=== PATIENT | male | born 1985 | race Caucasian/White ===

== ENCOUNTER 2020-12-29 13:52 | Emergency (ER) | payer SELFPAY ==
[~2020-12-29] VITALS: Ht 170.2 cm; Wt 86.5 kg
[2020-12-29 13:52] VITALS: BP 132/72
== END 2020-12-29 18:18 | disposition left against medical advice (07) ==
LOC: M ED 13:52
DX: Z53.21 Procedure and treatment not carried out due to patient leaving prior to being seen by health care provider (principal)

== ENCOUNTER 2021-01-15 13:56 | Emergency (ER) | payer OTHER, SELFPAY ==
[~2021-01-15] VITALS: Ht 170.2 cm; Wt 84.4 kg
[2021-01-15 14:55] LABS: BASO # 0.1 10^3/uL (0.0-0.2); BASO % 0.7 % (0.0-1.0); EOS # 0.2 10^3/uL (0.0-0.5); EOS % 2.5 % (0.0-3.0); HEMATOCRIT 41.8 % (42.0-52.0); HEMOGLOBIN 14.2 g/dl (13.5-17.5); LYMPH # 3.4 10^3/uL (1.5-5.0); MEAN CORPUSCULAR VOLUME 91.3 fl (80.0-96.0); MONO # 0.6 10^3/uL (0.0-0.8); MONO % 6.4 % (2.0-8.0); NEUTROPHILS # 4.7 10^3/uL (1.5-8.5); NEUTROPHILS % 52.2 % (36.0-66.0); PLATELET COUNT, AUTOMATED 268 10^3/uL (150-450); RED BLOOD COUNT 4.58 10^6/uL (4.30-6.10); WHITE BLOOD COUNT 8.9 10^3/uL (4.0-10.0)
--- NOTE | 2021-01-15 15:09 | REP ---
INDICATION: CHEST PAIN. COMPARISON: No comparison chest x-ray. TECHNIQUE: Portable upright AP chest radiograph. FINDINGS: The lungs are well inflated and free of infiltrate. Pleural angles are sharp. Heart size is normal. Pulmonary vasculature is not increased. IMPRESSION: No active disease. <Electronically signed by Roberto Ramirez > 01/15/21 [id number]
[2021-01-15 16:17] LABS: ALBUMIN 3.8 GM/DL (3.2-5.2); ALT/SGPT 37 U/L (12-78); BILIRUBIN,DIRECT < 0.1 MG/DL (0.0-0.2); BILIRUBIN,TOTAL 0.3 MG/DL (0.2-1.0); BLOOD UREA NITROGEN 26 MG/DL (7-18); CALCIUM LEVEL 9.2 MG/DL (8.5-10.1); CARBON DIOXIDE LEVEL 29 MEQ/L (21-32); CHLORIDE LEVEL 107 MEQ/L (98-107); CK-MB VALUE MASS < 1.0 NG/ML (<3.6); CPK CREATINE PHOSPHOKINASE 203 U/L (39-308); CREATININE FOR GFR 1.12 MG/DL (0.70-1.30); GLOMERULAR FILTRATION RATE > 60.0 (>60); GLUCOSE, FASTING 78 MG/DL (70-100); LIPASE 126 U/L (73-393); MAGNESIUM LEVEL 2.2 MG/DL (1.8-2.4); MB/CK RELATIVE INDEX 0.49 (< OR =4); POTASSIUM SERUM 4.4 MEQ/L (3.5-5.1); SODIUM LEVEL 140 MEQ/L (136-145); TOTAL PROTEIN 7.3 GM/DL (6.4-8.2); TROPONIN I < 0.02 NG/ML (< 0.10)
[2021-01-15 16:30] VITALS: BP 145/69
--- NOTE | 2021-01-15 19:06 | ECGEPIP ---
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
== END 2021-01-15 16:37 | disposition home or self-care (01) ==
LOC: M ED 13:56
DX: R00.2 Palpitations (principal)

== ENCOUNTER 2022-01-23 15:39 | Emergency (ER) | payer OTHER ==
[~2022-01-23] VITALS: Ht 172.7 cm; Wt 81.8 kg
[2022-01-23] MEDS ORDERED: TRAM50TA2 PO (15:47)
[2022-01-23] MEDS ORDERED: FIOR1CAP PO (15:47)
[2022-01-23] MEDS ORDERED: GABA-283 PO (15:47)
[2022-01-23] MEDS ORDERED: FIORICET TAB PO ONE (18:05)
[2022-01-23] MEDS ORDERED: NS 1,000 ML IV ONE (18:10)
[2022-01-23] MEDS ORDERED: VALPROIC ACID 250MG CAP PO ONE (18:10)
[2022-01-23] MEDS ORDERED: DIVALPROEX 500 MG TAB PO ONE (18:10)
[2022-01-23] MEDS ORDERED: BUTACAP78 PO (18:24)
[2022-01-23] MEDS ORDERED: DEPA1TAB3 PO (18:26)
[2022-01-23 20:05] VITALS: BP 134/80
[2022-01-24] MEDS ORDERED: DEPA1TAB3 PO (09:08)
[2022-01-24] MEDS ORDERED: BUTACAP78 PO (09:08)
== END 2022-01-23 20:15 | disposition home or self-care (01) ==
LOC: M ED 15:39
DX: G43.909 Migraine, unspecified, not intractable, without status migrainosus (principal); Z79.899 Other long term (current) drug therapy

== ENCOUNTER 2022-01-31 09:18 | Emergency (ER) | payer OTHER ==
[~2022-01-31] VITALS: Ht 172.7 cm; Wt 83.2 kg
[~2022-01-31 09:18] MED LIST: BUTACAP78 PO; DEPA1TAB3 PO; FIOR1CAP PO; GABA-283 PO; TRAM50TA2 PO
[2022-01-31] MEDS ORDERED: GABA-282 (09:36)
[2022-01-31] MEDS ORDERED: RIZA10TA58 (09:36)
[2022-01-31] MEDS ORDERED: INDO-16 (09:36)
[2022-01-31] MEDS ORDERED: FIORICET TAB PO ONE (12:00)
[2022-01-31] MEDS ORDERED: PRED10TA2 PO (14:10)
[2022-01-31 14:25] VITALS: BP 110/72
[2022-01-31] MEDS ORDERED: DEPA250T32 PO (22:02)
== END 2022-01-31 14:26 | disposition home or self-care (01) ==
LOC: M ED 09:18
DX: Z76.0 Encounter for issue of repeat prescription (principal); G43.909 Migraine, unspecified, not intractable, without status migrainosus; Z79.899 Other long term (current) drug therapy

== ENCOUNTER 2022-02-05 09:58 | Emergency (ER) | payer OTHER ==
[~2022-02-05] VITALS: Ht 172.7 cm; Wt 81.8 kg
[~2022-02-05 09:58] MED LIST changes: +DEPA250T32 PO; +GABA-282; +INDO-16; +PRED10TA2 PO; +RIZA10TA58
[2022-02-05] MEDS ORDERED: NS 1,000 ML IV ONE (14:30)
[2022-02-05] MEDS ORDERED: METOCLOPRAMIDE INJ 10MG/2ML VIAL (J2765 PER 1) IV ONE (14:30)
[2022-02-05] MEDS ORDERED: KETOROLAC 30 MG/ML 1ML VIAL IV ONE (14:30)
[2022-02-05] MEDS ORDERED: diphenhydrAMINE 50MG/ML VIAL (J1200) IV STA (14:30)
[2022-02-05] MEDS ORDERED: REGL10TA6 PO (15:44)
[2022-02-05 15:56] VITALS: BP 130/63
== END 2022-02-05 15:58 | disposition home or self-care (01) ==
LOC: M ED 09:58
DX: G43.909 Migraine, unspecified, not intractable, without status migrainosus (principal); Z79.899 Other long term (current) drug therapy
CPT/HCPCS: 96361; 96374; 96375; 99284; J1200; J1885; J2765

== ENCOUNTER 2022-08-23 09:14 | Emergency (ER) | payer OTHER ==
[~2022-08-23] VITALS: Ht 172.7 cm; Wt 81.8 kg
[2022-08-23 09:14] VITALS: BP 159/76
[~2022-08-23 09:14] MED LIST changes: +REGL10TA6 PO
[2022-08-23] MEDS ORDERED: AIMO70IN2 (09:27)
[2022-08-23] MEDS ORDERED: AMIT25TA17 (09:27)
[2022-08-23] MEDS ORDERED: AMIT100TA (09:27)
[2022-08-23 11:39] LABS: RSV AMPLIFICATION NEGATIVE (NEGATIVE)
[2022-08-24] MEDS ORDERED: DOCU100C16 (09:52)
[2022-08-24] MEDS ORDERED: GABA-282 (09:52)
[2022-08-24] MEDS ORDERED: GLYC1TAB18 (09:52)
[2022-08-24] MEDS ORDERED: RIZA10TA58 (09:52)
[2022-08-24] MEDS ORDERED: POLY510P14 (09:52)
[2022-08-24] MEDS ORDERED: FLUTISP (09:52)
[2022-08-24] MEDS ORDERED: HYDR50TA70 (09:52)
[2022-08-24] MEDS ORDERED: CETI-24 (09:52)
[2022-08-24] MEDS ORDERED: OMEP40CA5 (09:52)
[2022-08-24] MEDS ORDERED: LIDO2SOL9 PO (10:31)
[2022-08-24] MEDS ORDERED: IBUP80TA PO (10:31)
== END 2022-08-23 12:37 | disposition left against medical advice (07) ==
LOC: M ED 09:14
DX: R05.9 Cough, unspecified (principal); Z53.21 Procedure and treatment not carried out due to patient leaving prior to being seen by health care provider

== ENCOUNTER 2022-08-24 09:43 | Emergency (ER) | payer OTHER ==
[~2022-08-24] VITALS: Ht 172.7 cm; Wt 82.9 kg
[~2022-08-24 09:43] MED LIST changes: +AIMO70IN2; +AMIT100TA; +AMIT25TA17
[2022-08-24] MEDS ORDERED: DOCU100C16 (09:52)
[2022-08-24] MEDS ORDERED: POLY510P14 (09:52)
[2022-08-24] MEDS ORDERED: FLUT50SP17 (09:52)
[2022-08-24] MEDS ORDERED: HYDR50TA70 (09:52)
[2022-08-24] MEDS ORDERED: RIZA10TA58 (09:52)
[2022-08-24] MEDS ORDERED: GLYC1TAB18 (09:52)
[2022-08-24] MEDS ORDERED: CETI-24 (09:52)
[2022-08-24] MEDS ORDERED: OMEP40CA5 (09:52)
[2022-08-24] MEDS ORDERED: GABA-282 (09:52)
[2022-08-24] MEDS ORDERED: LIDOCAINE VISCOUS 2% SOLN 15ML UDC SS ONE (10:25)
[2022-08-24] MEDS ORDERED: IBUPROFEN 100MG 5ML ORAL SUSP UDC PO ONE (10:25)
[2022-08-24] MEDS ORDERED: LIDO2SOBTL PO (10:31)
[2022-08-24] MEDS ORDERED: IBUP80TA PO (10:31)
[2022-08-24 10:48] VITALS: BP 126/88
== END 2022-08-24 10:51 | disposition home or self-care (01) ==
LOC: M ED 09:43
DX: U07.1 COVID-19 (principal); J02.9 Acute pharyngitis, unspecified; Z79.899 Other long term (current) drug therapy

== ENCOUNTER → 2022-09-23 | Outpatient (REF) ==
[~2022-09-23] MED LIST changes: +CETI-24; +DOCU100C16; +FLUT50SP17; +GLYC1TAB18; +HYDR50TA70; +IBUP80TA PO; +LIDO2SOBTL PO; +OMEP40CA5; +POLY510P14
== END ==
LOC: M PLAIMG 10:17
PROVIDERS: ATTEND Internal Medicine
DX: R06.02 Shortness of breath (principal)

== ENCOUNTER 2022-11-01 07:58 | Day surgery (SDC) | payer OTHER ==
[~2022-11-01] VITALS: Ht 172.7 cm; Wt 84.7 kg
[~2022-11-01 07:58] MED LIST changes: +AIMO70IN2 SQ; +AMIT100TA PO; +BOTO10VL IM; +CETI10CH PO; +DOCU100C16 PO; +FLON1SPR; +GABA-282 PO; +GOOD200C PO; +HYDR50TA70 PO; +MIRA3350 PO; +NS 1,000 ML IV ONE; +OMEP40CA5 PO; +RIZA10TA58 PO
[2022-11-01] MEDS ORDERED: propofoL 200 MG/20 ML VIAL As Ordered ONE ×3 (08:06→10:08)
[2022-11-01] MEDS ORDERED: fentaNYL 100 MCG/2 ML INJECTION As Ordered ONE (08:06)
[2022-11-01] MEDS ORDERED: LIDOCAINE 2% MDV 20ML VIAL As Ordered ONE (08:06)
[2022-11-01] MEDS ORDERED: MIDAZOLAM INJ 2MG/2ML VIAL As Ordered ONE (09:58)
[2022-11-01 10:30] VITALS: TEMP 97.5
[2022-11-01 10:57] VITALS: BP 133/67; O2SAT 99
== END 2022-11-01 11:02 | disposition home or self-care (01) ==
LOC: M OPP 07:58
PROVIDERS: ATTEND Internal Medicine Gastroenterology
DX: K64.0 First degree hemorrhoids (principal); K64.4 Residual hemorrhoidal skin tags; K63.89 Other specified diseases of intestine; R12 Heartburn; K21.9 Gastro-esophageal reflux disease without esophagitis; F41.9 Anxiety disorder, unspecified; F32.A Depression, unspecified; G43.909 Migraine, unspecified, not intractable, without status migrainosus; Z79.899 Other long term (current) drug therapy
CPT/HCPCS: 43235; 45380; 88305; J2250; J3010